=== PATIENT | female | born 1930 | race Caucasian/White ===

== ENCOUNTER 2018-08-29 20:56 | Inpatient (IN) ==
[2018-08-29] MEDS ORDERED: ONDANSETRON 4 MG/2 ML VIAL IV STA (22:00)
[2018-08-29] MEDS ORDERED: HYDROmorphone 2 MG/1 ML VIAL IV STA (22:00)
[2018-08-29] MEDS ORDERED: SODIUM CHLORIDE 0.9% 500 ML IV STA (22:00)
[2018-08-30 00:26] LABS: Basophils # 0.1 10*3/uL (0.0-0.2); Basophils % 0.4 % (0.0-0.8); Eosinophils % 0.2 % (0.00-10.9); Hematocrit 37.2 VOL% (35.7-47.0); Hemoglobin 11.4 GM/DL (12.0-16.0); Immature Granulocytes % 0.6 %; Immature Granulocytes Absolute 0.07 #; Lymphocytes % 8.3 % (21.3-54.2); Mean Corpuscular HGB Conc 30.6 GM/DL (32-36); Mean Corpuscular Hemoglobin 28 PG (27-34); Mean Corpuscular Volume 92.8 FL (87-102); Mean Platelet Volume 11.6 FL (9.6-12.0); Monocytes # 0.8 10*3/uL (0.11-0.8); Monocytes % 6.8 % (1.7-12.7); Neutrophils # 9.8 10*3/uL (1.4-7.4); Neutrophils % 83.7 % (38.7-73.9); Platelet Count 160 T/CUMM (130-400); Red Blood Count 4.01 MC/CUMM (3.8-5.5); Red Cell Distribution Width 12.5 % (9.3-17.3); White Blood Count 11.7 T/CUMM (4-12)
[2018-08-30 00:58] LABS: Alanine Aminotransferase 13 U/L (13-56); Albumin 3.4 G/DL (3.4-5.0); Alkaline Phosphatase 88 U/L (45-117); Aspartate Amino Transferase 12 U/L (0-37); Blood Urea Nitrogen 20 MG/DL (7-18); Calcium 8.7 MG/DL (8.5-10.1); Glucose 265 MG/DL (74-106); Osmolality,Calculated 286.7 MOS/KG (273-304); Potassium 4.8 MMOL/L (3.5-5.1); Sodium 138 MMOL/L (136-145); Total Protein 7.4 G/DL (6.4-8.3)
[2018-08-30 01:04] LABS: PT Patient Result 10.7 SECS
[2018-08-30] MEDS ORDERED: DEXTROSE 50% 25 GM/50 ML SYRINGE IV PRN (01:19)
[2018-08-30] MEDS ORDERED: GLUCAGON 1 MG VIAL IM PRN (01:19)
[2018-08-30] MEDS ORDERED: MAGNESIUM HYDROXIDE SUSP 30 ML UDCUP PO PRN ×2 (01:19→10:43)
[2018-08-30] MEDS ORDERED: HYDROmorphone 2 MG/1 ML VIAL IV PRN (01:19)
[2018-08-30] MEDS ORDERED: ENOXAPARIN 40 MG/0.4 ML SYRINGE SUBCUT SCH (02:00)
[2018-08-30] MEDS: INSULIN REGULAR 100 UNIT/ML SUBCUT SCH ×4 (02:44→20:15)
[2018-08-30] MEDS: SODIUM CHLORIDE 0.9% 1,000 ML IV SCH ×3 (03:00→20:32)
[2018-08-30] MEDS: ONDANSETRON 4 MG/2 ML VIAL IV PRN ×3 (05:13→20:36)
[2018-08-30 05:57] LABS: Basophils % 0.3 % (0.0-0.8); Eosinophils % 0.1 % (0.00-10.9); Hematocrit 35.8 VOL% (35.7-47.0); Hemoglobin 10.9 GM/DL (12.0-16.0); Immature Granulocytes % 0.6 %; Immature Granulocytes Absolute 0.06 #; Lymphocytes % 9.6 % (21.3-54.2); Mean Corpuscular HGB Conc 30.4 GM/DL (32-36); Mean Corpuscular Hemoglobin 28 PG (27-34); Mean Platelet Volume 12.1 FL (9.6-12.0); Monocytes # 0.6 10*3/uL (0.11-0.8); Neutrophils # 8.6 10*3/uL (1.4-7.4); Neutrophils % 83.4 % (38.7-73.9); Platelet Count 162 T/CUMM (130-400); Red Blood Count 3.85 MC/CUMM (3.8-5.5); Red Cell Distribution Width 12.7 % (9.3-17.3); White Blood Count 10.3 T/CUMM (4-12)
[2018-08-30] MEDS ORDERED: ceFAZolin 2,000 MG in PREMIX 1 EACH IV ONE (06:00)
[2018-08-30 06:24] LABS: Albumin 3.2 G/DL (3.4-5.0); Calcium 8.3 MG/DL (8.5-10.1); Osmolality,Calculated 289.5 MOS/KG (273-304); Potassium 4.7 MMOL/L (3.5-5.1); Total Protein 7.1 G/DL (6.4-8.3)
[2018-08-30] MEDS ORDERED: MEPERIDINE 25 MG/1 ML VIAL IV PRN ×2 (07:21→07:29)
[2018-08-30] MEDS: INSULIN NPH 100 UNIT/ML SUBCUT SCH ×2 (07:50→23:42)
[2018-08-30] MEDS ORDERED: ONDANSETRON 4 MG/2 ML VIAL ONE ×2 (08:58→11:09)
[2018-08-30] MEDS: PANTOPRAZOLE 40 MG VIAL IV SCH (10:10)
[2018-08-30] MEDS: DOCUSATE SODIUM 100 MG CAPSULE PO SCH ×2 (10:10→20:08)
[2018-08-30] MEDS ORDERED: PROMETHAZINE 25 MG/1 ML VIAL IM PRN (10:43)
[2018-08-30] MEDS ORDERED: BISACODYL 10 MG SUPP RECTAL PRN (10:43)
[2018-08-30] MEDS ORDERED: MORPHINE 4 MG/1 ML VIAL IV PRN ×2 (10:43→10:54)
[2018-08-30] MEDS ORDERED: diphenhydrAMINE CAP 25 MG CAPSULE PO PRN (10:43)
[2018-08-30] MEDS ORDERED: LACTULOSE 20 GM/30 ML UDCUP PO PRN (10:43)
[2018-08-30] MEDS ORDERED: PROPOFOL 200 MG/20 ML VIAL IV ONE (11:06)
[2018-08-30] MEDS ORDERED: MIDAZOLAM 2 MG/2 ML VIAL ONE (11:07)
[2018-08-30] MEDS ORDERED: SEVOFLURANE 1 UNIT/15 MINUTE INH ONE (11:07)
[2018-08-30] MEDS ORDERED: fentaNYL 100 MCG/2 ML VIAL ONE (11:08)
[2018-08-30] MEDS ORDERED: KETAMINE 500 MG/10 ML VIAL ONE (11:08)
[2018-08-30] MEDS ORDERED: ROCURONIUM 100 MG/10 ML VIAL IV ONE (11:09)
[2018-08-30] MEDS ORDERED: GLYCOPYRROLATE 0.4 MG/2 ML VIAL ONE (11:09)
[2018-08-30] MEDS ORDERED: ePHEDrine 50 MG/ML AMP ONE (11:09)
[2018-08-30] MEDS ORDERED: SUCCINYLCHOLINE 200 MG/10 ML VIAL ONE (11:09)
[2018-08-30] MEDS ORDERED: NEOSTIGMINE 10 MG/10 ML VIAL ONE (11:09)
[2018-08-30] MEDS ORDERED: ACETAMINOPHEN 1,000 MG/100 ML VIAL IV ONE (11:09)
[2018-08-30] MEDS ORDERED: PHENYLEPHRINE 1 MG/10 ML SYRINGE IV ONE (11:09)
[2018-08-30 11:11] LABS: Apearance,Urine CLEAR (Clear); Bacteria,Urine Occasional /HPF (Few); Bilirubin,Urine Negative (Negative); Blood, Urine Moderate mg/dL (Negative); Glucose,Urine (UA) >=500 mg/dL (Negative); Hyaline Casts,Urine 5 /LPF (0-3); Ketones,Urine 20 mg/dL (Negative); Mucus,Urine Occasional /LPF (Occasional); Nitrite,Urine Negative (Negative); Protein,Urine Negative; RBC,Urine 8 /HPF (0-4); Squamous Epithelial Cell,Urine Occasional /HPF (0-10); Urine Color Yellow (Yellow); Urine Specific Gravity 1.023 (1.001-1.035); Urine Urobilinogen < 2.0 EU/DL (0.2-1.0); WBC,Urine 1 /HPF (0-6)
[2018-08-30] MEDS: ceFAZolin 1,000 MG in SYRINGE 1 EACH IV SCH (15:50)
[2018-08-30] MEDS: FONDAPARINUX 2.5 MG/0.5 ML SYRINGE SUBCUT SCH (20:37)
[2018-08-31] MEDS: ceFAZolin 1,000 MG in SYRINGE 1 EACH IV SCH ×2 (00:55→08:28)
[2018-08-31] MEDS: INSULIN REGULAR 100 UNIT/ML SUBCUT SCH ×3 (00:58→12:47)
[2018-08-31 04:59] LABS: Basophils # 0.1 10*3/uL (0.0-0.2); Basophils % 0.4 % (0.0-0.8); Eosinophils # 0.2 10*3/uL (0.0-0.87); Eosinophils % 1.6 % (0.00-10.9); Hematocrit 25.9 VOL% (35.7-47.0); Hemoglobin 7.9 GM/DL (12.0-16.0); Immature Granulocytes % 0.5 %; Immature Granulocytes Absolute 0.07 #; Lymphocytes # 1.9 10*3/uL (1.4-4.0); Lymphocytes % 14.8 % (21.3-54.2); Mean Corpuscular HGB Conc 30.5 GM/DL (32-36); Mean Corpuscular Hemoglobin 29 PG (27-34); Mean Corpuscular Volume 93.8 FL (87-102); Mean Platelet Volume 11.9 FL (9.6-12.0); Monocytes # 1.1 10*3/uL (0.11-0.8); Monocytes % 8.7 % (1.7-12.7); Neutrophils # 9.6 10*3/uL (1.4-7.4); Platelet Count 128 T/CUMM (130-400); Red Blood Count 2.76 MC/CUMM (3.8-5.5); Red Cell Distribution Width 12.9 % (9.3-17.3)
[2018-08-31 05:28] LABS: Calcium 7.5 MG/DL (8.5-10.1); Osmolality,Calculated 283.8 MOS/KG (273-304); Potassium 4.3 MMOL/L (3.5-5.1)
[2018-08-31] MEDS: INSULIN NPH 100 UNIT/ML SUBCUT SCH ×2 (07:33→22:05)
[2018-08-31] MEDS: PANTOPRAZOLE 40 MG VIAL IV SCH (08:26)
[2018-08-31] MEDS: ONDANSETRON 4 MG/2 ML VIAL IV PRN (08:27)
[2018-08-31] MEDS: DOCUSATE SODIUM 100 MG CAPSULE PO SCH ×2 (08:27→21:58)
[2018-08-31] MEDS ORDERED: KETOROLAC 15 MG/1 ML VIAL IM ONE (13:10)
[2018-08-31] MEDS: SODIUM CHLORIDE 0.9% 1,000 ML IV SCH (13:30)
[2018-08-31] MEDS: KETOROLAC 15 MG/1 ML VIAL IM SCH ×2 (15:42→22:05)
[2018-08-31] MEDS ORDERED: PHENYLEPHRINE DRIP 40 MG/250 ML PREMIX IV ONE (19:59)
[2018-08-31] MEDS ORDERED: PHENYLEPHRINE DRIP 40 MG/250 ML PREMIX IV PRN (20:01)
[2018-08-31] MEDS ORDERED: SODIUM CHLORIDE 0.9% 1,000 ML IV PRN (20:04)
[2018-08-31 20:25] LABS: Basophils % 0.2 % (0.0-0.8); Eosinophils % 0.1 % (0.00-10.9); Hematocrit 25.5 VOL% (35.7-47.0); Hemoglobin 7.5 GM/DL (12.0-16.0); Immature Granulocytes % 3.2 %; Immature Granulocytes Absolute 0.59 #; Lymphocytes # 1.2 10*3/uL (1.4-4.0); Lymphocytes % 6.2 % (21.3-54.2); Mean Corpuscular HGB Conc 29.4 GM/DL (32-36); Mean Corpuscular Hemoglobin 29 PG (27-34); Mean Corpuscular Volume 98.8 FL (87-102); Mean Platelet Volume 12.4 FL (9.6-12.0); Monocytes # 1.3 10*3/uL (0.11-0.8); Monocytes % 7.1 % (1.7-12.7); Neutrophils # 15.5 10*3/uL (1.4-7.4); Neutrophils % 83.2 % (38.7-73.9); Platelet Count 141 T/CUMM (130-400); Red Blood Count 2.58 MC/CUMM (3.8-5.5); Red Cell Distribution Width 13.1 % (9.3-17.3); White Blood Count 18.6 T/CUMM (4-12)
[2018-08-31 20:53] LABS: Albumin 2.6 G/DL (3.4-5.0); Bilirubin,Total 2.3 MG/DL (0.2-1.0); Osmolality,Calculated 282.7 MOS/KG (273-304); Total Protein 5.9 G/DL (6.4-8.3)
[2018-08-31 20:55] LABS: Potassium 6.5 MMOL/L (3.5-5.1)
[2018-08-31] MEDS ORDERED: CALCIUM CHLORIDE 1,000 MG/10 ML SYRINGE IV ONE ×2 (21:35→21:42)
[2018-08-31] MEDS ORDERED: DEXTROSE 50% 25 GM/50 ML SYRINGE IV ONE (21:36)
[2018-08-31] MEDS ORDERED: INSULIN REGULAR 100 UNIT/ML IV ONE (21:36)
[2018-08-31 21:43] LABS: Anisocytosis 1+; Macrocytosis 1+; Microcytosis Slight; Platelet Estimate Decreased
[2018-08-31] MEDS ORDERED: CALCIUM GLUCONATE 1,000 MG/10 ML VIAL IV ONE ×2 (21:47→22:00)
[2018-08-31] MEDS: FONDAPARINUX 2.5 MG/0.5 ML SYRINGE SUBCUT SCH (22:06)
[2018-09-01] MEDS: INSULIN REGULAR 100 UNIT/ML SUBCUT SCH ×4 (00:52→17:55)
[2018-09-01] MEDS: SODIUM CHLORIDE 0.9% 1,000 ML IV SCH ×5 (00:55→18:49)
[2018-09-01 01:48] LABS: Apearance,Urine CLOUDY (Clear); Bilirubin,Urine Negative (Negative); Blood, Urine Large mg/dL (Negative); Glucose,Urine (UA) >=500 mg/dL (Negative); Ketones,Urine 5 mg/dL (Negative); Mucus,Urine Occasional /LPF (Occasional); Nitrite,Urine Negative (Negative); Protein,Urine 30 MG/DL; RBC,Urine 5 /HPF (0-4); Squamous Epithelial Cell,Urine Occasional /HPF (0-10); Urine Color Amber (Yellow); Urine Urobilinogen < 2.0 EU/DL (0.2-1.0); WBC,Urine 12 /HPF (0-6)
[2018-09-01] MEDS: KETOROLAC 15 MG/1 ML VIAL IM SCH ×4 (05:30→21:27)
[2018-09-01 07:17] LABS: Basophils % 0.2 % (0.0-0.8); Eosinophils % 0.1 % (0.00-10.9); Hemoglobin 9.7 GM/DL (12.0-16.0); Immature Granulocytes % 1.9 %; Immature Granulocytes Absolute 0.35 #; Lymphocytes # 1.1 10*3/uL (1.4-4.0); Mean Corpuscular HGB Conc 29.4 GM/DL (32-36); Mean Corpuscular Hemoglobin 29 PG (27-34); Mean Corpuscular Volume 97.3 FL (87-102); Monocytes % 5.5 % (1.7-12.7); Neutrophils # 16.3 10*3/uL (1.4-7.4); Neutrophils % 86.3 % (38.7-73.9); Platelet Count 125 T/CUMM (130-400); Red Blood Count 3.39 MC/CUMM (3.8-5.5); Red Cell Distribution Width 13.3 % (9.3-17.3); White Blood Count 18.9 T/CUMM (4-12)
[2018-09-01 07:24] LABS: Platelet Estimate Adequate
[2018-09-01 07:25] LABS: Anisocytosis Slight
[2018-09-01 08:38] LABS: Calcium 8.1 MG/DL (8.5-10.1); Osmolality,Calculated 290.4 MOS/KG (273-304); Potassium 4.8 MMOL/L (3.5-5.1)
[2018-09-01] MEDS: DOCUSATE SODIUM 100 MG CAPSULE PO SCH ×2 (09:06→21:21)
[2018-09-01] MEDS: PANTOPRAZOLE 40 MG VIAL IV SCH (09:06)
[2018-09-01] MEDS: INSULIN NPH 100 UNIT/ML SUBCUT SCH ×2 (09:12→21:21)
[2018-09-01] MEDS: ONDANSETRON 4 MG/2 ML VIAL IV PRN (12:34)
[2018-09-01] MEDS: FONDAPARINUX 2.5 MG/0.5 ML SYRINGE SUBCUT SCH (21:21)
[2018-09-02] MEDS: INSULIN REGULAR 100 UNIT/ML SUBCUT SCH ×4 (01:01→18:37)
[2018-09-02] MEDS: SODIUM CHLORIDE 0.9% 1,000 ML IV SCH ×3 (01:02→17:42)
[2018-09-02] MEDS: KETOROLAC 15 MG/1 ML VIAL IM SCH ×4 (03:56→21:32)
[2018-09-02 04:58] LABS: Basophils % 0.1 % (0.0-0.8); Hematocrit 25.1 VOL% (35.7-47.0); Hemoglobin 8.1 GM/DL (12.0-16.0); Immature Granulocytes % 1.8 %; Immature Granulocytes Absolute 0.26 #; Lymphocytes # 0.9 10*3/uL (1.4-4.0); Lymphocytes % 6.3 % (21.3-54.2); Mean Corpuscular HGB Conc 32.3 GM/DL (32-36); Mean Corpuscular Hemoglobin 29 PG (27-34); Mean Platelet Volume 12.7 FL (9.6-12.0); Monocytes # 0.8 10*3/uL (0.11-0.8); Monocytes % 5.4 % (1.7-12.7); Neutrophils # 12.5 10*3/uL (1.4-7.4); Neutrophils % 86.4 % (38.7-73.9); Platelet Count 115 T/CUMM (130-400); Red Blood Count 2.79 MC/CUMM (3.8-5.5); Red Cell Distribution Width 13.3 % (9.3-17.3); White Blood Count 14.4 T/CUMM (4-12)
[2018-09-02 05:39] LABS: Albumin 2.3 G/DL (3.4-5.0); Bilirubin,Total 1.3 MG/DL (0.2-1.0); Calcium 8.2 MG/DL (8.5-10.1); Free T4 (Free Thyroxine) 1.05 NG/DL (0.76-1.46); Osmolality,Calculated 290.5 MOS/KG (273-304); Potassium 3.9 MMOL/L (3.5-5.1); Total Protein 5.6 G/DL (6.4-8.3)
[2018-09-02 07:53] LABS: Basophils % 0.1 % (0.0-0.8); Hematocrit 26.2 VOL% (35.7-47.0); Hemoglobin 8.4 GM/DL (12.0-16.0); Immature Granulocytes % 2.1 %; Immature Granulocytes Absolute 0.32 #; Lymphocytes # 0.9 10*3/uL (1.4-4.0); Mean Corpuscular HGB Conc 32.1 GM/DL (32-36); Mean Corpuscular Hemoglobin 29 PG (27-34); Mean Corpuscular Volume 90.3 FL (87-102); Mean Platelet Volume 12.2 FL (9.6-12.0); Monocytes # 0.9 10*3/uL (0.11-0.8); Monocytes % 5.6 % (1.7-12.7); Neutrophils # 13.2 10*3/uL (1.4-7.4); Neutrophils % 86.2 % (38.7-73.9); Platelet Count 132 T/CUMM (130-400); Red Cell Distribution Width 13.2 % (9.3-17.3); White Blood Count 15.3 T/CUMM (4-12)
[2018-09-02] MEDS: DOCUSATE SODIUM 100 MG CAPSULE PO SCH ×2 (09:23→20:28)
[2018-09-02] MEDS: PANTOPRAZOLE 40 MG VIAL IV SCH (09:23)
[2018-09-02] MEDS: CARVEDILOL 3.125 MG TABLET PO SCH ×2 (09:23→20:28)
[2018-09-02] MEDS: INSULIN NPH 100 UNIT/ML SUBCUT SCH ×2 (09:23→20:28)
[2018-09-02] MEDS: ASPIRIN EC 81 MG TABLET PO SCH (09:23)
[2018-09-02] MEDS: POLYETHYLENE GLYCOL POWDER 17 GM PACK PO SCH (12:40)
[2018-09-02] MEDS: FONDAPARINUX 2.5 MG/0.5 ML SYRINGE SUBCUT SCH (20:28)
[2018-09-03] MEDS: INSULIN REGULAR 100 UNIT/ML SUBCUT SCH ×4 (00:27→18:01)
[2018-09-03] MEDS: KETOROLAC 15 MG/1 ML VIAL IM SCH ×4 (04:18→21:10)
[2018-09-03 04:45] LABS: Basophils % 0.2 % (0.0-0.8); Hematocrit 25.8 VOL% (35.7-47.0); Immature Granulocytes % 2.3 %; Immature Granulocytes Absolute 0.29 #; Lymphocytes # 1.2 10*3/uL (1.4-4.0); Lymphocytes % 9.2 % (21.3-54.2); Mean Corpuscular Hemoglobin 28 PG (27-34); Mean Corpuscular Volume 91.5 FL (87-102); Mean Platelet Volume 12.7 FL (9.6-12.0); Monocytes % 7.8 % (1.7-12.7); NRBC # 0.02 10*3/uL; Neutrophils # 10.2 10*3/uL (1.4-7.4); Neutrophils % 80.5 % (38.7-73.9); Platelet Count 155 T/CUMM (130-400); Red Blood Count 2.82 MC/CUMM (3.8-5.5); Red Cell Distribution Width 13.4 % (9.3-17.3); White Blood Count 12.7 T/CUMM (4-12)
[2018-09-03 04:55] LABS: Albumin 2.4 G/DL (3.4-5.0); Bilirubin,Direct 0.29 MG/DL (0.0-0.20); Bilirubin,Indirect 1.2 MG/DL (0.0-1.0); Bilirubin,Total 1.5 MG/DL (0.2-1.0); Total Protein 5.9 G/DL (6.4-8.3)
[2018-09-03] MEDS: SODIUM CHLORIDE 0.9% 1,000 ML IV SCH ×4 (06:28→21:15)
[2018-09-03] MEDS: INSULIN NPH 100 UNIT/ML SUBCUT SCH ×2 (08:12→21:13)
[2018-09-03] MEDS: ONDANSETRON 4 MG/2 ML VIAL IV PRN (08:25)
[2018-09-03] MEDS: POLYETHYLENE GLYCOL POWDER 17 GM PACK PO SCH (08:29)
[2018-09-03] MEDS: PANTOPRAZOLE 40 MG VIAL IV SCH (08:29)
[2018-09-03] MEDS: ASPIRIN EC 81 MG TABLET PO SCH (08:29)
[2018-09-03] MEDS: DOCUSATE SODIUM 100 MG CAPSULE PO SCH ×2 (08:29→21:14)
[2018-09-03] MEDS: CARVEDILOL 3.125 MG TABLET PO SCH ×2 (08:29→21:14)
[2018-09-04] MEDS: INSULIN REGULAR 100 UNIT/ML SUBCUT SCH ×4 (00:38→18:11)
[2018-09-04] MEDS: SODIUM CHLORIDE 0.9% 1,000 ML IV SCH ×3 (04:30→17:00)
[2018-09-04] MEDS: KETOROLAC 15 MG/1 ML VIAL IM SCH ×4 (04:56→21:57)
[2018-09-04 05:55] LABS: Basophils % 0.2 % (0.0-0.8); Eosinophils # 0.1 10*3/uL (0.0-0.87); Eosinophils % 0.7 % (0.00-10.9); Immature Granulocytes % 3.5 %; Immature Granulocytes Absolute 0.37 #; Lymphocytes # 1.7 10*3/uL (1.4-4.0); Lymphocytes % 15.9 % (21.3-54.2); Mean Corpuscular Hemoglobin 29 PG (27-34); Mean Corpuscular Volume 91.2 FL (87-102); Mean Platelet Volume 12.1 FL (9.6-12.0); Monocytes # 1.1 10*3/uL (0.11-0.8); Monocytes % 10.5 % (1.7-12.7); NRBC # 0.02 10*3/uL; Neutrophils # 7.4 10*3/uL (1.4-7.4); Neutrophils % 69.2 % (38.7-73.9); Platelet Count 168 T/CUMM (130-400); Red Blood Count 2.74 MC/CUMM (3.8-5.5); Red Cell Distribution Width 13.7 % (9.3-17.3); White Blood Count 10.7 T/CUMM (4-12)
[2018-09-04 06:25] LABS: Albumin 2.5 G/DL (3.4-5.0); Bilirubin,Total 0.9 MG/DL (0.2-1.0); Calcium 7.5 MG/DL (8.5-10.1); Potassium 3.6 MMOL/L (3.5-5.1); Total Protein 5.8 G/DL (6.4-8.3)
[2018-09-04] MEDS ORDERED: SODIUM CHLORIDE 0.9% 1,000 ML IV PRN (06:42)
[2018-09-04] MEDS: INSULIN NPH 100 UNIT/ML SUBCUT SCH ×2 (07:40→20:29)
[2018-09-04] MEDS ORDERED: FUROSEMIDE 20 MG/2 ML VIAL IV ONE ×2 (08:11→14:59)
[2018-09-04] MEDS ORDERED: TUBERCULIN SKIN TEST 0.1 ML SYRINGE INTRADERM ONE (09:34)
[2018-09-04] MEDS: PANTOPRAZOLE 40 MG VIAL IV SCH (09:34)
[2018-09-04] MEDS: POLYETHYLENE GLYCOL POWDER 17 GM PACK PO SCH (09:35)
[2018-09-04] MEDS: DOCUSATE SODIUM 100 MG CAPSULE PO SCH ×2 (09:35→20:29)
[2018-09-04] MEDS: ASPIRIN EC 81 MG TABLET PO SCH (09:35)
[2018-09-04] MEDS: CARVEDILOL 3.125 MG TABLET PO SCH ×2 (09:35→20:29)
[2018-09-05] MEDS: INSULIN REGULAR 100 UNIT/ML SUBCUT SCH ×4 (00:49→20:35)
[2018-09-05] MEDS: SODIUM CHLORIDE 0.9% 1,000 ML IV SCH (01:31)
[2018-09-05] MEDS: KETOROLAC 15 MG/1 ML VIAL IM SCH ×2 (04:20→09:57)
[2018-09-05 06:08] LABS: Basophils # 0.1 10*3/uL (0.0-0.2); Basophils % 0.5 % (0.0-0.8); Eosinophils # 0.4 10*3/uL (0.0-0.87); Eosinophils % 3.9 % (0.00-10.9); Hematocrit 34.4 VOL% (35.7-47.0); Hemoglobin 10.9 GM/DL (12.0-16.0); Immature Granulocytes % 5.1 %; Immature Granulocytes Absolute 0.52 #; Lymphocytes # 2.2 10*3/uL (1.4-4.0); Lymphocytes % 21.8 % (21.3-54.2); Mean Corpuscular HGB Conc 31.7 GM/DL (32-36); Mean Corpuscular Hemoglobin 29 PG (27-34); Mean Corpuscular Volume 90.8 FL (87-102); Mean Platelet Volume 12.2 FL (9.6-12.0); Monocytes # 1.2 10*3/uL (0.11-0.8); Monocytes % 11.4 % (1.7-12.7); NRBC # 0.02 10*3/uL; Neutrophils # 5.8 10*3/uL (1.4-7.4); Neutrophils % 57.3 % (38.7-73.9); Platelet Count 170 T/CUMM (130-400); Red Blood Count 3.79 MC/CUMM (3.8-5.5); Red Cell Distribution Width 14.9 % (9.3-17.3); White Blood Count 10.1 T/CUMM (4-12)
[2018-09-05 06:30] LABS: Albumin 2.6 G/DL (3.4-5.0); Bilirubin,Direct 0.27 MG/DL (0.0-0.20); Bilirubin,Indirect 0.9 MG/DL (0.0-1.0); Bilirubin,Total 1.2 MG/DL (0.2-1.0)
[2018-09-05 06:31] LABS: Atypical Lymphocytes Few; Band Neutrophils 1 % (0-10); Eosinophils 4 % (0-10); Hypochromasia 1+; Lymphocytes 33 % (20-55); Microcytosis 1+; Myelocytes 1 %; Segmented Neutrophils 54 % (50-85); Total Cells Counted 100
[2018-09-05 06:32] LABS: Platelet Estimate Adequate
[2018-09-05] MEDS ORDERED: BISACODYL 5 MG TABLET PO PRN (08:03)
[2018-09-05] MEDS: INSULIN NPH 100 UNIT/ML SUBCUT SCH ×2 (08:04→20:35)
[2018-09-05] MEDS: PANTOPRAZOLE 40 MG VIAL IV SCH (08:08)
[2018-09-05] MEDS: CARVEDILOL 3.125 MG TABLET PO SCH ×2 (08:09→20:39)
[2018-09-05] MEDS: POLYETHYLENE GLYCOL POWDER 17 GM PACK PO SCH (08:09)
[2018-09-05] MEDS: DOCUSATE SODIUM 100 MG CAPSULE PO SCH ×2 (08:09→20:38)
[2018-09-05] MEDS: ASPIRIN EC 81 MG TABLET PO SCH (08:09)
[2018-09-06] MEDS: INSULIN REGULAR 100 UNIT/ML SUBCUT SCH ×4 (00:24→19:10)
[2018-09-06] MEDS: SODIUM CHLORIDE 0.9% 1,000 ML IV SCH ×2 (01:01→21:31)
[2018-09-06 06:10] LABS: Albumin 2.4 G/DL (3.4-5.0); Bilirubin,Direct 0.28 MG/DL (0.0-0.20); Bilirubin,Indirect 0.9 MG/DL (0.0-1.0); Bilirubin,Total 1.2 MG/DL (0.2-1.0); Total Protein 5.8 G/DL (6.4-8.3)
[2018-09-06] MEDS: CARVEDILOL 3.125 MG TABLET PO SCH ×2 (09:15→21:06)
[2018-09-06] MEDS: DOCUSATE SODIUM 100 MG CAPSULE PO SCH ×2 (09:15→21:06)
[2018-09-06] MEDS: ASPIRIN EC 81 MG TABLET PO SCH (09:15)
[2018-09-06] MEDS: POLYETHYLENE GLYCOL POWDER 17 GM PACK PO SCH (09:16)
[2018-09-06] MEDS: PANTOPRAZOLE 40 MG VIAL IV SCH (09:30)
[2018-09-06] MEDS: INSULIN NPH 100 UNIT/ML SUBCUT SCH ×2 (09:34→21:11)
[2018-09-06] MEDS: SERTRALINE 25 MG TABLET PO SCH (21:06)
[2018-09-07] MEDS: INSULIN REGULAR 100 UNIT/ML SUBCUT SCH ×4 (00:38→18:26)
[2018-09-07] MEDS: PANTOPRAZOLE 40 MG VIAL IV SCH (10:27)
[2018-09-07] MEDS: DOCUSATE SODIUM 100 MG CAPSULE PO SCH ×2 (10:29→21:17)
[2018-09-07] MEDS: ASPIRIN EC 81 MG TABLET PO SCH (10:30)
[2018-09-07] MEDS: CARVEDILOL 3.125 MG TABLET PO SCH ×2 (10:30→22:46)
[2018-09-07] MEDS: POLYETHYLENE GLYCOL POWDER 17 GM PACK PO SCH (10:30)
[2018-09-07] MEDS: INSULIN NPH 100 UNIT/ML SUBCUT SCH ×2 (10:36→21:19)
[2018-09-07] MEDS: SERTRALINE 25 MG TABLET PO SCH (21:17)
[2018-09-07] MEDS: SODIUM CHLORIDE 0.9% 1,000 ML IV SCH (21:23)
[2018-09-08] MEDS: INSULIN REGULAR 100 UNIT/ML SUBCUT SCH ×5 (00:31→23:59)
[2018-09-08] MEDS: PANTOPRAZOLE 40 MG VIAL IV SCH (09:09)
[2018-09-08] MEDS: INSULIN NPH 100 UNIT/ML SUBCUT SCH ×2 (09:09→20:03)
[2018-09-08] MEDS: CARVEDILOL 3.125 MG TABLET PO SCH ×2 (09:12→20:02)
[2018-09-08] MEDS: DOCUSATE SODIUM 100 MG CAPSULE PO SCH ×2 (09:13→20:02)
[2018-09-08] MEDS: POLYETHYLENE GLYCOL POWDER 17 GM PACK PO SCH (09:13)
[2018-09-08] MEDS: ASPIRIN EC 81 MG TABLET PO SCH (09:13)
[2018-09-08] MEDS: ONDANSETRON 4 MG/2 ML VIAL IV PRN (13:00)
[2018-09-08] MEDS: SERTRALINE 25 MG TABLET PO SCH (20:02)
[2018-09-08] MEDS: SODIUM CHLORIDE 0.9% 1,000 ML IV SCH (23:58)
[2018-09-09] MEDS: ONDANSETRON 4 MG/2 ML VIAL IV PRN ×2 (04:33→10:10)
[2018-09-09] MEDS: INSULIN REGULAR 100 UNIT/ML SUBCUT SCH (05:51)
[2018-09-09 07:34] VITALS: BP 120/61
[2018-09-09] MEDS: POLYETHYLENE GLYCOL POWDER 17 GM PACK PO SCH (09:29)
[2018-09-09] MEDS: INSULIN NPH 100 UNIT/ML SUBCUT SCH (09:29)
[2018-09-09] MEDS: DOCUSATE SODIUM 100 MG CAPSULE PO SCH (09:30)
[2018-09-09] MEDS: ASPIRIN EC 81 MG TABLET PO SCH (09:30)
[2018-09-09] MEDS: PANTOPRAZOLE 40 MG VIAL IV SCH (09:30)
[2018-09-09] MEDS: CARVEDILOL 3.125 MG TABLET PO SCH (09:30)
== END 2018-09-09 11:20 | disposition swing bed (61) | DRG 480 ==
LOC: EDUNIT# → EDBD → N.ED 20:56 → N.EDINP 22:52 → N.3E 23:31 → N.CC 08-31 19:52 → N.3E 09-03 11:47
PROVIDERS: ADMIT Family Medicine; ATTEND Family Medicine